=== PATIENT | female | born 1935 | race Caucasian/White ===

== ENCOUNTER 2023-06-05 04:05 | Emergency (ER) | payer MEDICARE, BC ==
[~2023-06-05] VITALS: Ht 162.6 cm; Wt 55.0 kg
[~2023-06-05 04:05] MED LIST: CEFD300C3 PO; LACT1CAP55 PO
[2023-06-05 04:15] VITALS: TEMP 98.2
[2023-06-05] MEDS: LORazepam 2 mg/ml vial ONE (05:01)
[2023-06-05] MEDS: LORazepam 2 mg/ml vial IM ONE (05:04)
[2023-06-05 08:13] VITALS: BP 134/61; PULSE 79; RESP 14; O2SAT 98
== END 2023-06-05 08:16 | disposition home or self-care (01) ==
LOC: ER 04:06
DX: F03.90 Unspecified dementia, unspecified severity, without behavioral disturbance, psychotic disturbance, mood disturbance, and anxiety (principal); F05 Delirium due to known physiological condition; Z79.2 Long term (current) use of antibiotics; Z79.899 Other long term (current) drug therapy
CPT/HCPCS: 96372; 99285; J2060